=== PATIENT | male | born 1975 | race Hispanic/Latino ===

== ENCOUNTER 2020-10-02 17:00 | Emergency (ER) | payer BC ==
--- NOTE | 2020-10-02 20:05 | RAD REPORT ---
EXAM DESCRIPTION: Alhaji Single View10/02/2020 7:49 pm CLINICAL HISTORY: Shortness of breath COMPARISON: 2013 FINDINGS: The lungs appear clear of acute infiltrate. The heart is normal size IMPRESSION: No acute abnormalities displayed
[2020-10-02] MEDS ORDERED: NA CHLORIDE 0.9% 1,000 ML ONE (20:16)
[2020-10-02] MEDS ORDERED: ALBUTEROL INHALER 60 PUFF/8 GM IH ONE (20:16)
[2020-10-02 20:18] LABS: Absolute Lymphocytes (CBC) 2.1 K/uL (0.7-4.9); Basophils % 0.2 % (0-1.3); Hematocrit 47.4 % (39.6-49.0); Lymphocytes % 35.9 % (15.3-44.8); MPV 8.9 fL (7.6-11.3)
[2020-10-02 20:19] LABS: Protime INR 1.1
[2020-10-02 20:38] LABS: ALT/SGPT 41 U/L (12-78); AST/SGOT 20 U/L (15-37); Albumin 3.9 g/dL (3.4-5.0); Alkaline Phosphatase 55 U/L (45-117); BUN Blood Urea Nitrogen 10 mg/dL (7-18); Bicarbonate 24 mmol/L (21-32); Bilirubin Direct 0.3 mg/dL (0-0.2); Bilirubin Total 1.2 mg/dL (0.2-1.0); Glucose Level 90 mg/dL (74-106); Magnesium 2.2 mg/dL (1.8-2.4); NT PRO-BNP 34 pg/mL (<125); Potassium 3.4 mmol/L (3.5-5.1); Protein, Total 8.1 g/dL (6.4-8.2); Sodium Level 136 mmol/L (136-145); Troponin (Emerg Dept Use Only) < 0.02 ng/mL (0.0-0.045)
[2020-10-03] MEDS ORDERED: NA CHLORIDE 0.9% 1,000 ML ONE (00:06)
--- NOTE | 2020-10-03 00:06 | ER ---
Nurse's Notes [facility] Name: Power Dodd III Age: 45 yrs Sex: Male : 1975 Arrival Date: 10/02/2020 Time: 17:02 Bed 15 Private MD: Diagnosis: COVID Pneumonia Presentation: 10/02 17:17 Chief complaint: Patient states: SOB x 1 day, COVID +. Coronavirus screen: Client sv denies travel out of the [place] in the last 14 days. Client presents with at least one sign or symptom that may indicate coronavirus-19. Standard/surgical mask placed on the client. Provider contacted for isolation considerations. Client reports previous positive COVID test result. Date of collection: September 26, 2020. Ebola Screen: No symptoms or risks identified at this time. Risk Assessment: Do you want to hurt yourself or someone else? Patient reports no desire to harm self or others. Onset of symptoms was October 01, 2020. 17:17 Method Of Arrival: Ambulatory sv 17:17 Acuity: THOMAS 3 sv 17:19 Initial Sepsis Screen: Does the patient meet any 2 criteria? RR > 20 per min. HR > 90 sv bpm. Yes Does the patient have a suspected source of infection? Yes: Other: COVID. Triage Assessment: 17:17 General: Appears in no apparent distress. comfortable, Behavior is calm, cooperative, sv appropriate for age. Pain: Denies pain. Neuro: Level of Consciousness is awake, alert, obeys commands, Oriented to person, place, time, situation, Gait is steady, Speech is normal. Respiratory: Airway is patent Respiratory effort is even, unlabored, Respiratory pattern is symmetrical, tachypnea. Historical: - Allergies: 17:19 No Known Allergies; sv - PMHx: 17:19 IDD; UC; sv - PSHx: 17:19 None; sv - Immunization history:: Adult Immunizations up to date. - Social history:: Smoking status: Patient reports the use of cigarette tobacco products, denies chronic smoking, but will smoke occasionally. Screenin/01 00:05 Abuse screen: Denies threats or abuse. Nutritional screening: No deficits noted. ll2 Tuberculosis screening: No symptoms or risk factors identified. Fall Risk None identified. Assessment: 10/02 17:53 Reassessment: Received VO from Dr Cobian for CXR. sv 19:00 General: Appears in no apparent distress. Behavior is calm, cooperative, appropriate ll2 for age. Pain: Complains of pain in chest. Neuro: Level of Consciousness is awake, alert, obeys commands, Oriented to person, place, time, situation. Cardiovascular: Patient's skin is warm and dry. Respiratory: Airway is patent Respiratory effort is even, unlabored, Respiratory pattern is regular, symmetrical. GI: No signs and/or symptoms were reported involving the gastrointestinal system. : No signs and/or symptoms were reported regarding the genitourinary system. EENT: No signs and/or symptoms were reported regarding the EENT system. Derm: No signs and/or symptoms reported regarding the dermatologic system. Musculoskeletal: Circulation, motion, and sensation intact. Range of motion: intact in all extremities. 20:00 Reassessment: Patient and/or family updated on plan of care and expected duration. Pain ll2 level reassessed. Patient is alert, oriented x 3, equal unlabored respirations, skin warm/dry/pink. 21:00 Reassessment: Patient and/or family updated on plan of care and expected duration. Pain ll2 level reassessed. Patient is alert, oriented x 3, equal unlabored respirations, skin warm/dry/pink. 22:00 Reassessment: No changes from previously documented assessment. Patient and/or family ll2 updated on plan of care and expected duration. Pain level reassessed. Patient is alert, oriented x 3, equal unlabored respirations, skin warm/dry/pink. 23:00 Reassessment: Patient and/or family updated on plan of care and expected duration. Pain ll2 level reassessed. Patient is alert, oriented x 3, equal unlabored respirations, skin warm/dry/pink. 10/03 00:22 Reassessment: Patient and/or family updated on plan of care and expected duration. Pain ll2 level reassessed. Patient is alert, oriented x 3, equal unlabored respirations, skin warm/dry/pink. 00:22 Reassessment: pt pending d/c upon completion of IV fluids. ll2 01:24 Reassessment: Patient and/or family updated on plan of care and expected duration. Pain ll2 level reassessed. Patient is alert, oriented x 3, equal unlabored respirations, skin warm/dry/pink. Vital Signs: 10/02 17:19 BP 109 / 77; Pulse 119; Resp 24; Temp 98.8; Pulse Ox 100% ; Weight 88.9 kg; Height 5 sv ft. 6 in. (167.64 cm); Pain 0/10; 19:10 BP 119 / 83; Pulse 127; Resp 22; Temp 98.1; Pulse Ox 97% on R/A; ll2 20:15 BP 104 / 67; Pulse 96; Resp 22; Pulse Ox 100% on R/A; ll2 21:15 BP 108 / 69; Pulse 89; Resp 22; Pulse Ox 100% on R/A; ll2 22:15 BP 109 / 76; Pulse 99; Resp 20; Pulse Ox 99% on R/A; ll2 23:15 BP 112 / 81; Pulse 101; Resp 22; Pulse Ox 98% on R/A; ll2 10/03 00:04 BP 117 / 74; Pulse 91; Resp 22; Temp 100.1; Pulse Ox 98% ; ll2 10/02 17:19 Body Mass Index 31.63 (88.90 kg, 167.64 cm) sv ED Course: 10/02 17:02 Patient arrived in ED. ds1 17:17 Arm band placed on. sv 17:18 Triage completed. sv 19:02 Dennis Michele MD is Attending Physician. mh7 19:50 XRAY Chest (1 view) In Process Unspecified. EDMS 19:59 Alexandria Tolbert, RN is Primary Nurse. ll2 22:30 No provider procedures requiring assistance completed. Initial lab(s) drawn, by ak, ll2 sent to lab. Inserted saline lock: 20 gauge in right antecubital area, using aseptic technique. Blood collected. 22:34 CT Chest For PE Angio In Process Unspecified. EDMS 10/03 00:07 Patient has correct armband on for positive identification. Placed in gown. Bed in low ll2 position. Call light in reach. Side rails up X 1. fire claims adjuster on. Pulse ox on. NIBP on. 01:29 IV discontinued, intact, bleeding controlled, No redness/swelling at site. Pressure ll2 dressing applied. Administered Medications: 10/02 20:00 Drug: NS 0.9% 1000 ml Route: IV; Rate: 1000 ml; Site: right antecubital; ll2 20:00 Drug: Albuterol HFA Inhaler 2 puffs Route: Inhalation; ll2 Outcome: 10/03 00:05 Discharge ordered by mh7 01:24 Patient left the ED. ll2 01:28 Discharged to home ambulatory. ll2 01:28 Condition: stable 01:28 Discharge instructions given to patient, Instructed on discharge instructions, follow up and referral plans. medication usage, Demonstrated understanding of instructions, follow-up care, medications, Prescriptions given X 2. Signatures: Dispatcher [employer] EDYoko Frank, RN RN Kailey Vazquez ds1 Alexandria Tolbert RN RN ll2 Dennis Michele MD MD mh7 Corrections: (The following items were deleted from the chart) 00:14 10/02 19:10 BP 119 / 83; Pulse 127bpm; Resp 22bpm; Pulse Ox 97% RA; ll2 ll2 10/03 00:20 00:04 BP 117 / 74; Pulse 91bpm; Resp 22bpm; Pulse Ox 98%; ll2 ll2 00:24 00:22 Reassessment: pt pending d/c apon completion of IV fluids ll2 ll2
--- NOTE | 2020-10-03 00:06 | EDPHYS ---
Physician Documentation [facility] Name: Power Dodd III Age: 45 yrs Sex: Male : 1975 Arrival Date: 10/02/2020 Time: 17:02 Bed 15 Private MD: ED Physician Dennis Michele HPI: 10/02 19:30 This 45 yrs old Male presents to ER via Ambulatory with complaints of Covid +- mh7 Shortness of Breath. 19:30 The patient has shortness of breath at rest, with light activity. Onset: The mh7 symptoms/episode began/occurred 2 day(s) ago. Duration: The symptoms are intermittent, with no pattern. The patient's shortness of breath is aggravated by coughing, light activity. Associated signs and symptoms: Pertinent positives: productive cough, Pertinent negatives: chest pain, non-productive cough, diaphoresis, dizziness, fever, hemoptysis, loss of consciousness, nausea, numbness in extremities, visual changes, vomiting. Severity of symptoms: At their worst the symptoms were moderate yesterday, in the emergency department the symptoms are unchanged. Tested positive for COVID 1 week ago.. Historical: - Allergies: 17:19 No Known Allergies; sv - PMHx: 17:19 IDD; UC; sv - PSHx: 17:19 None; sv - Immunization history:: Adult Immunizations up to date. - Social history:: Smoking status: Patient reports the use of cigarette tobacco products, denies chronic smoking, but will smoke occasionally. ROS: 19:30 Constitutional: Negative for fever, chills, and weight loss, Eyes: Negative for injury, mh7 pain, redness, and discharge, ENT: Negative for injury, pain, and discharge, Neck: Negative for injury, pain, and swelling, Cardiovascular: Negative for chest pain, palpitations, and edema, Abdomen/GI: Negative for abdominal pain, nausea, vomiting, diarrhea, and constipation, Back: Negative for injury and pain, : Negative for injury, bleeding, discharge, and swelling, MS/Extremity: Negative for injury and deformity, Skin: Negative for injury, rash, and discoloration, Neuro: Negative for headache, weakness, numbness, tingling, and seizure, Psych: Negative for depression, anxiety, suicide ideation, homicidal ideation, and hallucinations, Allergy/Immunology: Negative for hives, rash, and allergies, Endocrine: Negative for neck swelling, polydipsia, polyuria, polyphagia, and marked weight changes, Hematologic/Lymphatic: Negative for swollen nodes, abnormal bleeding, and unusual bruising. Exam: 19:30 Constitutional: This is a well developed, well nourished patient who is awake, alert, mh7 and in no acute distress. Head/Face: Normocephalic, atraumatic. Eyes: Pupils equal round and reactive to light, extra-ocular motions intact. Lids and lashes normal. Conjunctiva and sclera are non-icteric and not injected. Cornea within normal limits. Periorbital areas with no swelling, redness, or edema. Neck: Trachea midline, no thyromegaly or masses palpated, and no cervical lymphadenopathy. Supple, full range of motion without nuchal rigidity, or vertebral point tenderness. No Meningismus. Chest/axilla: Normal chest wall appearance and motion. Nontender with no deformity. No lesions are appreciated. 19:30 Abdomen/GI: Soft, non-tender, with normal bowel sounds. No distension or tympany. No guarding or rebound. No evidence of tenderness throughout. Back: No spinal tenderness. No costovertebral tenderness. Full range of motion. Skin: Warm, dry with normal turgor. Normal color with no rashes, no lesions, and no evidence of cellulitis. MS/ Extremity: Pulses equal, no cyanosis. Neurovascular intact. Full, normal range of motion. Neuro: Awake and alert, GCS 15, oriented to person, place, time, and situation. Cranial nerves II-XII grossly intact. Motor strength 5/5 in all extremities. Sensory grossly intact. Cerebellar exam normal. Normal gait. Psych: Awake, alert, with orientation to person, place and time. Behavior, mood, and affect are within normal limits. 19:30 Cardiovascular: Rate: tachycardic, Rhythm: regular, Pulses: no pulse deficits are appreciated, Heart sounds: normal, normal S1and S2, Edema: is not appreciated, JVD: is not appreciated. 19:30 Respiratory: mild respiratory distress is noted, Respirations: tachypnea, that is mild, Breath sounds: rhonchi, that are mild, are scattered, Respiratory rate: 24 Vital Signs: 17:19 BP 109 / 77; Pulse 119; Resp 24; Temp 98.8; Pulse Ox 100% ; Weight 88.9 kg; Height 5 sv ft. 6 in. (167.64 cm); Pain 0/10; 19:10 BP 119 / 83; Pulse 127; Resp 22; Temp 98.1; Pulse Ox 97% on R/A; ll2 20:15 BP 104 / 67; Pulse 96; Resp 22; Pulse Ox 100% on R/A; ll2 21:15 BP 108 / 69; Pulse 89; Resp 22; Pulse Ox 100% on R/A; ll2 22:15 BP 109 / 76; Pulse 99; Resp 20; Pulse Ox 99% on R/A; ll2 23:15 BP 112 / 81; Pulse 101; Resp 22; Pulse Ox 98% on R/A; ll2 10/03 00:04 BP 117 / 74; Pulse 91; Resp 22; Temp 100.1; Pulse Ox 98% ; ll2 10/02 17:19 Body Mass Index 31.63 (88.90 kg, 167.64 cm) sv MDM: 00:03 Differential diagnosis: Anemia Anxiety Reaction asthma, Bronchitis Chronic Obstructive 7 Pulmonary Disease Myocardial Infarction pneumonia, Pneumothorax Psychogenic pulmonary edema, Pulmonary Embolism reactive airway disease. Data reviewed: vital signs, nurses notes, EMS record, lab test result(s), cardiac enzymes, CBC, electrolytes, urinalysis, EKG, radiologic studies, CT scan, plain films. Data interpreted: Pulse oximetry: on room air is 99 %. Interpretation: normal. Counseling: I had a detailed discussion with the patient and/or guardian regarding: the historical points, exam findings, and any diagnostic results supporting the discharge/admit diagnosis, lab results, radiology results, the need for outpatient follow up, to return to the emergency department if symptoms worsen or persist or if there are any questions or concerns that arise at home. Response to treatment: the patient's symptoms have resolved after treatment, the patient's blood pressure is in an acceptable range, mental status has returned to baseline, the patient no longer shows bradycardia, the patient is not short of breath, the patient is not tachycardic, the patient's pain is gone, the patient's temperature has normalized. 00:05 Patient medically screened. [facility] 10/02 19:22 Order name: Basic Metabolic Panel; Complete Time: 20:42 [facility] 10/02 19:22 Order name: CBC with Diff; Complete Time: 20:42 10/02 19:22 Order name: LFT's; Complete Time: 20:42 10/02 19:22 Order name: Magnesium; Complete Time: 20:42 10/02 19:22 Order name: NT PRO-BNP; Complete Time: 20:42 10/02 19:22 Order name: PT-INR; Complete Time: 20:42 10/02 19:22 Order name: Troponin (emerg Dept Use Only); Complete Time: 20:42 10/02 19:22 Order name: XRAY Chest (1 view); Complete Time: 20:42 10/02 19:23 Order name: Blood Culture Adult (2) [facility] 10/02 19:23 Order name: Lactate; Complete Time: 23:51 10/02 19:23 Order name: Procalcitonin; Complete Time: 23:08 10/02 20:46 Order name: CT Chest For PE Angio 10/02 19:22 Order name: EKG; Complete Time: 19:23 10/02 19:22 Order name: Cardiac monitoring; Complete Time: 22:22 10/02 19:22 Order name: EKG - Nurse/Tech; Complete Time: 22:22 [facility] 10/02 19:22 Order name: IV Saline Lock; Complete Time: 22:22 10/02 19:22 Order name: Labs collected and sent; Complete Time: 22:22 [facility] 10/02 19:22 Order name: O2 Per Protocol; Complete Time: 22:22 [facility] 10/02 19:22 Order name: O2 Sat Monitoring; Complete Time: 22:22 [facility] Administered Medications: 10/02 20:00 Drug: NS 0.9% 1000 ml Route: IV; Rate: 1000 ml; Site: right antecubital; ll2 20:00 Drug: Albuterol HFA Inhaler 2 puffs Route: Inhalation; ll2 Disposition: 10/03/20 00:05 Discharged to Home. Impression: COVID Pneumonia. - Condition is Stable. - Discharge Instructions: COVID-19. - Prescriptions for Prednisone 20 mg Oral Tablet - take 2 tablet by ORAL route once daily for 5 days; 10 tablet. Albuterol Sulfate 90 mcg/actuation - inhale 1-2 puff by INHALATION route every 4-6 hours; 1 Inhaler. - Medication Reconciliation Form, Thank You Letter, Antibiotic Education, Prescription Opioid Use form. - Follow up: Private Physician; When: 1 - 2 days; Reason: Worsening of condition, Recheck today's complaints, Continuance of care, Re-evaluation by your physician. - Problem is an ongoing problem. - Symptoms have improved. Signatures: Dispatcher [employer] [facility] Yoko Newby, RN RN Alexandria Tolbert RN RN ll2 Dennis Michele MD MD mh7 Corrections: (The following items were deleted from the chart) 19:41 17:54 Chest Pa And Lat (2 Views)+[email or web address] ordered. [facility] 10/03 01:24 00:05 10/03/2020 00:05 Discharged to Home. Impression: COVID Pneumonia. Condition is ll2 Stable. Forms are Medication Reconciliation Form, Thank You Letter, Antibiotic Education, Prescription Opioid Use. Follow up: Private Physician; When: 1 - 2 days; Reason: Worsening of condition, Recheck today's complaints, Continuance of care, Re-evaluation by your physician. Problem is an ongoing problem. Symptoms have improved. mh7
[2020-10-03 05:36] VITALS: O2SAT 98
[2020-10-03 05:38] VITALS: BP 117/74; TEMP 100.1
--- NOTE | 2020-10-03 11:56 | RAD REPORT ---
EXAM DESCRIPTION: CT - Chest For Pe Angio - 10/03/2020 5:43 am CLINICAL HISTORY: SOB. COMPARISON: None. TECHNIQUE: CTA of the chest was performed following intravenous administration of iodinated contrast . Axial soft tissue and bone window, and coronal and sagittal soft tissue window reconstructions were created and sent to PACS. 3D postprocessing was performed on an independent workstation, with images sent to PACS for subsequen t review. This exam was performed according to our departmental dose-optimization program, which includes autom ated exposure control, adjustment of the mA and/or kV according to patient size and/or use of iterati ve reconstruction technique. FINDINGS: Vascular: The pulmonary arteries are well-opacified to the segmental level. No CT evidence of acute pulmonary thromboembolism. No evidence of aortic aneurysm or dissection. Lungs and pleura: Mild centrilobular emphysema. Small region of bronchiectasis along the medial aspec t of the right upper lobe. Small rounded opacities in the posterior aspect of the right and left lowe r lobes. No pleural effusion. No pneumothorax. Mediastinum and neck: No mediastinal lymphadenopathy by CT size criteria. Unremarkable appearance of the thyroid gland. Cardiac: No cardiomegaly or pericardial effusion. No thoracic aortic aneurysm or dissection. Abdomen: No significant upper abdominal abnormality identified. Musculoskeletal: No concerning osseous abnormality. IMPRESSION: 1. No CTA evidence of acute pulmonary thromboembolism. 2. Small rounded opacities in both lower lobes, possibly consolidations. Differential includes atel ectasis. 3. Mild emphysematous changes. Mild bronchiectasis in the right upper lobe. Electronically signed by: Jen Lacy MD 10/02/2020 10:42 PM SERVER SUPPORT TECHNICIAN Due to temporary technical issues with the PACS/Fluency reporting system, reports are being signed by the in house radiologist without review as a courtesy to ensure prompt reporting. The interpreting r adiologist is fully responsible for the content of the report.
--- NOTE | 2020-10-03 17:09 | EKG ---
Test Date: 2020-10-02 Test Time: 22:04:24 Staff Mine Warfare Officer: GIANNI MEASUREMENT RESULTS: Intervals: Rate: 98 AL: 156 QRSD: 118 QT: 342 QTc: 436 Hope: P: 38 AL: 156 QRS: 117 T: 39 INTERPRETIVE STATEMENTS: Normal sinus rhythm Low voltage QRS Right bundle branch block Left posterior fascicular block Bifascicular block Abnormal ECG Compared to ECG 04/17/2014 13:19:47 Low QRS voltage now present Left posterior fascicular block now present Bifascicular block now present Ventricular premature complex(es) no longer present Electronically Signed On 10-03-20 17:06:14 MACHINE STRIPER by Vijay Moran
== END 2020-10-03 01:24 | disposition home or self-care (01) ==
LOC: ER 17:00
DX: U07.1 COVID-19 (principal); J12.82 Pneumonia due to coronavirus disease 2019; F17.210 Nicotine dependence, cigarettes, uncomplicated
CPT/HCPCS: 93005; 87040 ×2; 85025; 80048; 36415; 83735; 85610; 80076; 83605; 84484; 84145; 83880; 71275; 71045; 99285; Q9967; J7030